=== PATIENT | female | born 1935 | race Caucasian/White ===

== ENCOUNTER → 2017-11-06 07:46 | Outpatient (CLI) | payer MEDICARE, OTHER, SELFPAY ==
[2017-11-06 08:17] LABS: Add Manual Diff / Slide Review NO; Basophils Percent Auto 0.8 % (0-2); Eosinophils Percent Auto 1.3 % (2-4); Hematocrit 33.3 % (36-46); Hemoglobin 10.9 g/dL (12.0-16.0); Lymphocytes Percent Auto 8.2 % (25-40); Mean Corpuscular HGB Conc 32.6 % (30-36); Mean Corpuscular Hemoglobin 25.6 PG (26-34); Mean Corpuscular Volume 78.5 fL (80-100); Monocytes Percent Auto 8.6 % (3-14); Neutrophils Absolute Auto 6500 /uL (3000-5900); Neutrophils Percent Auto 81.1 % (50-75); Platelet Count 188 X10^3/uL (150-400); Red Blood Cell Count 4.25 X10^6/uL (4.0-5.2); Red Cell Distribution Width 15.9 % (11.6-14.8)
[2017-11-06 08:26] LABS: Reticulocyte Count, Percent 1.2 % (1.06-2.63)
[2017-11-06 08:44] LABS: HEMOLYSIS < 15 (0-50); Iron 46 ug/dL (37-170)
[2017-11-06 08:55] LABS: Percent Iron Saturation 11 % (15-50); Total Iron Binding Capacity 420 ug/dL (265-497); Transferrin 339 mg/dL (206-381)
[2017-11-06 09:21] LABS: Ferritin 9.1 ng/mL (11.1-264)
[2017-11-06 09:35] LABS: Vitamin B12 241 pg/mL (239-931)
== END ==
PROVIDERS: Family Provider Family Medicine; PCP Family Medicine; Visit Provider Family Medicine
DX: D64.9 Anemia, unspecified (principal)
CPT/HCPCS: 36415; 82607; 82728; 83540; 83550; 85025; 85045

== ENCOUNTER → 2018-01-03 13:00 | Oncology outpatient (ONC) | payer MEDICARE, OTHER, SELFPAY ==
[2017-12-13] MEDS: IRON SUCROSE 200 MG in SODIUM CHLORIDE 0.9% 100 ML 220 ML IV (13:13)
[2017-12-13 13:16] VITALS: BP 160/74; PULSE 63; RESP 16; TEMP 36.4; O2SAT 100
[2017-12-20 13:09] VITALS: BP 170/76; PULSE 61; RESP 16; TEMP 36.6; O2SAT 100
[2017-12-20] MEDS: IRON SUCROSE 200 MG in SODIUM CHLORIDE 0.9% 100 ML 220 ML IV (13:32)
[2017-12-27 10:35] VITALS: BP 173/74; PULSE 62; RESP 16; TEMP 36.4
--- NOTE | 2017-12-27 10:35 | PC.NURSE ---
Pt states her blood pressure is normally in this high range when she goes to Dr's office.
[2017-12-27] MEDS: IRON SUCROSE 200 MG in SODIUM CHLORIDE 0.9% 100 ML 220 ML IV (10:59)
[2018-01-03 13:09] VITALS: BP 169/78; PULSE 64; RESP 17; TEMP 36.7
[2018-01-03] MEDS: IRON SUCROSE 200 MG in SODIUM CHLORIDE 0.9% 100 ML 220 ML IV (13:17)
== END ==
PROVIDERS: Family Provider Family Medicine; PCP Family Medicine; Visit Provider Family Medicine
DX: D50.9 Iron deficiency anemia, unspecified (principal)
CPT/HCPCS: 96365; J1756

== ENCOUNTER → 2018-01-08 10:39 | Outpatient (CLI) | payer MEDICARE, OTHER, SELFPAY ==
[2018-01-08 11:34] LABS: Add Manual Diff / Slide Review NO; Basophils Percent Auto 0.8 % (0-2); Eosinophils Percent Auto 1.7 % (2-4); Hemoglobin 11.3 g/dL (12.0-16.0); Lymphocytes Percent Auto 11.6 % (25-40); Mean Corpuscular HGB Conc 32.2 % (30-36); Mean Corpuscular Hemoglobin 25.8 PG (26-34); Mean Corpuscular Volume 79.9 fL (80-100); Monocytes Percent Auto 9.1 % (3-14); Neutrophils Absolute Auto 4200 /uL (3000-5900); Neutrophils Percent Auto 76.8 % (50-75); Platelet Count 143 X10^3/uL (150-400); Red Blood Cell Count 4.38 X10^6/uL (4.0-5.2); Red Cell Distribution Width 17.5 % (11.6-14.8); White Blood Cell Count 5.5 X10^3/uL (4.5-11.0)
[2018-01-08 12:02] LABS: Blood Urea Nitrogen 20 mg/dL (7-17); Calcium 8.5 mg/dL (8.4-10.2); Carbon Dioxide 32 mmol/L (22-32); Chloride 102 mmol/L (98-107); Estimated Glomerular Filt Rate > 60.0 mL/min (>60); Glucose 84 mg/dL (80-110); HEMOLYSIS < 15 (0-50); Potassium 4.5 mmol/L (3.4-5.1); Sodium 144 mmol/L (137-145)
[2018-01-08 12:53] LABS: Vitamin B12 > 1000 pg/mL (239-931)
== END ==
PROVIDERS: PCP Family Medicine; Visit Provider Family Medicine
DX: D50.9 Iron deficiency anemia, unspecified (principal); E53.8 Deficiency of other specified B group vitamins; R63.6 Underweight
CPT/HCPCS: 36415; 80048; 82607; 82728; 85025

== ENCOUNTER → 2018-07-29 10:07 | Outpatient (CLI) | payer MEDICARE, OTHER, SELFPAY ==
[2018-07-29 12:29] LABS: HEMOLYSIS < 15 (0-50); Iron 44 ug/dL (37-170)
[2018-07-29 12:41] LABS: Ferritin 90.8 ng/mL (11.1-264)
[2018-07-29 12:42] LABS: Percent Iron Saturation 14 % (15-50); Total Iron Binding Capacity 316 ug/dL (265-497); Transferrin 244 mg/dL (206-381)
[2018-07-29 13:03] LABS: TSH w/ Reflex to FT4 2.06 uIU/mL (0.47-4.68)
== END ==
PROVIDERS: PCP Family Medicine; Visit Provider Family Medicine
DX: E34.0 Carcinoid syndrome (principal); K52.9 Noninfective gastroenteritis and colitis, unspecified; R63.6 Underweight; R53.83 Other fatigue; D50.9 Iron deficiency anemia, unspecified
CPT/HCPCS: 36415; 82728; 83540; 83550; 84443

== ENCOUNTER → 2019-01-07 14:08 | Outpatient (CLI) | payer MEDICARE, OTHER, SELFPAY ==
[2019-01-07 15:45] LABS: Cholesterol 169 mg/dL (140-199); HDL Cholesterol 87 mg/dL (40-60); HEMOLYSIS < 15 (0-50); Iron 57 ug/dL (37-170); LDL Cholesterol Calculated 60 mg/dL (<100); Triglycerides 111 mg/dL (35-150)
[2019-01-07 15:47] LABS: Creatinine Urine Random 94.8 mg/dL
[2019-01-07 15:52] LABS: Microalbumin Urine Random 5.5 mg/dL (0-1.6)
[2019-01-07 15:55] LABS: Percent Iron Saturation 18 % (15-50); Total Iron Binding Capacity 319 ug/dL (265-497); Transferrin 264 mg/dL (206-381)
[2019-01-07 16:03] LABS: Vitamin D 25 Hydroxy (D3) 17.1 ng/mL (30.0-100.0)
[2019-01-07 16:21] LABS: Ferritin 91.9 ng/mL (11.1-264)
== END ==
PROVIDERS: PCP Family Medicine; Visit Provider Family Medicine
DX: D50.9 Iron deficiency anemia, unspecified (principal); D69.6 Thrombocytopenia, unspecified; E34.0 Carcinoid syndrome; I15.8 Other secondary hypertension; K52.9 Noninfective gastroenteritis and colitis, unspecified; M81.8 Other osteoporosis without current pathological fracture; R63.6 Underweight; I10 Essential (primary) hypertension; M81.0 Age-related osteoporosis without current pathological fracture
CPT/HCPCS: 36415; 80061; 82043; 82306; 82570; 82728; 83540; 83550